=== PATIENT | male | born 1980 | race African-American/Black ===

== ENCOUNTER 2018-04-04 08:24 | Emergency (ER) | payer MEDICAID ==
[~2018-04-04] VITALS: Ht 175.3 cm; Wt 64.1 kg
[2018-04-04 08:26] VITALS: BP 148/89
[2018-04-04] MEDS ORDERED: AZITHROMYCIN 500 MG TABLET ONE (08:47)
[2018-04-04] MEDS ORDERED: CEFTRIAXONE 250 MG ONE (08:48)
[2018-04-04] MEDS ORDERED: CEFTRIAXONE 250 MG IM ONE (09:00)
[2018-04-04] MEDS ORDERED: AZITHROMYCIN 500 MG TABLET PO ONE (09:00)
== END 2018-04-04 09:08 | disposition home or self-care (01) ==
LOC: ED 08:50
DX: Z20.2 Contact with and (suspected) exposure to infections with a predominantly sexual mode of transmission (principal)
CPT/HCPCS: 87491; 87591; 96372; 99284; J0696

== ENCOUNTER 2018-05-14 13:29 | Emergency (ER) | payer MEDICAID ==
[~2018-05-14] VITALS: Ht 175.3 cm; Wt 65.5 kg
[2018-05-14 13:34] VITALS: BP 121/81
== END 2018-05-14 14:10 | disposition home or self-care (01) ==
LOC: ED 13:45
DX: K08.89 Other specified disorders of teeth and supporting structures (principal); F17.200 Nicotine dependence, unspecified, uncomplicated
CPT/HCPCS: 99283